=== PATIENT | male | born 1950 | race African-American/Black ===

== ENCOUNTER 2019-03-03 10:05 | Emergency (ER) | payer OTHER ==
[~2019-03-03 10:05] MED LIST: Iopamidol 370 76% 150 ML VIAL FS ONE
--- NOTE | 2019-03-03 10:42 | RAD ---
XR Chest 1 View Portable HISTORY: Injury, chest pain, coronary artery disease and hypertension COMPARISON: None FINDINGS: There are changes of median sternotomy. The heart size at upper limits of normal. There is elevation the right hemidiaphragm. No lobar consolidation, pneumothoraces, cecy pulmonary edema or pleural effusions are seen. IMPRESSION: No radiographic evidence of acute cardiopulmonary process.
[2019-03-03 10:44] LABS: #Eosinphils 0.2 thou/uL (0.0-0.7); #Lymphocytes 1.9 thou/uL (1.20-3.40); #Monocytes 0.5 thou/uL (0.11-0.59); %Basophils 0.7 % (0.0-1.0); %Lymphocytes 33.6 % (21.0-51.0); %Monocytes 9.1 % (0.0-10.0); %Neutrophils 53.6 % (42.0-75.0); Hemoglobin 14.6 g/dL (14.0-18.0); Mean Corpuscular HGB CONC 36.4 g/dL (32.0-36.0); Mean Corpuscular Hemoglobin 32.4 pg (27.0-31.0); Mean Corpuscular Volume 89.2 fL (78.0-98.0); Mean Platelet Volume 6.3 fL (7.4-10.4); Platelet Count 204 thou/uL (130-400); RBC Distribution Width 11.2 % (11.5-14.5); White Blood Cell (WBC) Count 5.5 thou/uL (4.8-10.8)
[2019-03-03 10:53] LABS: ALT (SGPT) 35 U/L (8-55); AST (SGOT) 21 U/L (5-34); Albumin 4.5 g/dL (3.4-4.8); Alcohol Less than 10 mg/dL (Less than 10); Alkaline Phosphatase 59 U/L (40-150); Anion Gap 13 mmol/L (10-20); BUN (Urea Nitrogen) 7 mg/dL (8.4-25.7); Calc. Creatinine Clearance 0 mL/min (70-130); Calcium 9.5 mg/dL (7.8-10.44); Carbon Dioxide 26 mmol/L (23-31); Chloride 103 mmol/L (98-107); Estimated GFR-MDRD Greater than 90; Globulin 3.2 g/dL (2.4-3.5); Glucose 104 mg/dL (80-115); Protein, Total 7.7 g/dL (5.8-8.1); Sodium 138 mmol/L (136-145)
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
== END 2019-03-03 13:22 | disposition home or self-care (01) ==
LOC: SCSER 10:05
DX: S27.0XXA Traumatic pneumothorax, initial encounter (principal); S22.31XA Fracture of one rib, right side, initial encounter for closed fracture; F17.210 Nicotine dependence, cigarettes, uncomplicated; V86.59XA Driver of other special all-terrain or other off-road motor vehicle injured in nontraffic accident, initial encounter
CPT/HCPCS: 71045; 71260; 74177; 80053; 80307; 84484; 85025; 86850; 86900; 86901; 93005